=== PATIENT | male | born 1955 | race Caucasian/White ===

== ENCOUNTER 2019-09-20 04:51 | Inpatient (IN) ==
[2019-09-14 16:16] LABS: Appearance,Urine CLEAR; Bilirubin,Urine NEG (NEG); Color,Urine YELLOW; Culture Indicated,Urine NO; Glucose,Urine (UA) 50 mg/dL (NEG); Ketones,Urine NEG (NEG); Leukocyte Esterase,Urine NEG /uL (NEG); Nitrate,Urine NEG (NEG); Protein,Urine NEG (NEG); Specific Gravity,Urine 1.019 (1.000-1.035); Urine Blood NEG mg/dL (<0.03); Urobilinogen,Urine NEG (NEG)
[2019-09-14 16:46] LABS: Prothrombin Time 12.8 sec (11.9-14.5)
[2019-09-14 18:11] LABS: Basophils % (Auto) 1.3 % (0.0-2.0); Eosinophils # (Auto) 0.53 K/mcL (0.00-0.70); Eosinophils % (Auto) 6.7 % (0.0-7.0); Granulocytes % (Auto) 63.1 % (38.0-78.0); Hematocrit 44.3 % (40.1-51.0); Hemoglobin 14.6 g/dL (13.7-17.5); Lymphocytes # (Auto) 1.56 K/mcL (1.50-4.80); Lymphocytes % (Auto) 19.7 % (15.5-49.0); Mean Cell Volume 91.3 fL (80.0-100.0); Mean Platelet Volume 9.8 fL (7.4-10.4); Monocytes # (Auto) 0.73 K/mcL (0.10-0.90); Monocytes % (Auto) 9.2 % (1.0-12.0); Platelet Count 277 K/mcL (140-440); RBC 4.85 M/mcL (4.63-6.08); Red Cell Distribution Width 12.1 % (11.5-14.5); WBC 7.9 K/mcL (4.50-11.00)
[2019-09-14 18:25] LABS: Blood Urea Nitrogen 18 mg/dl (8-23); Calcium 9.3 mg/dl (8.6-10.4); Carbon Dioxide 26 mmol/L (22-30); Chloride 103 mmol/L (96-108); Glomerular Filtration Rate 89; Glucose 122 mg/dL (70-105)
[2019-09-14 18:31] LABS: Estimated Average Glucose(eAG) 163 mg/dL; Hemoglobin A1C 7.3 % HGB (4.0-6.0)
[2019-09-20] MEDS ORDERED: IPRATROPIUM/ALBUTEROL 3 ML AMPUL.NEB NEB PRN ×2 (05:00→09:41)
[2019-09-20] MEDS ORDERED: SCOPOLAMINE 1 PATCH PATCH TOPICAL PRN (05:00)
[2019-09-20] MEDS ORDERED: 0.9 % SODIUM CHLORIDE 9 ML, KETOROLAC 30 MG, ROPIVACAINE HCL/PF 49.5 ML, EPINEPHrine 0.... IJ SCH (06:00)
[2019-09-20] MEDS ORDERED: ceFAZolin 2 GM in DEXTROSE 5% IN WATER 50 ML IV SCH (06:00)
[2019-09-20] MEDS ORDERED: GENTAMICIN SULFATE 800 MG/20 ML VIAL IR ONE (07:20)
[2019-09-20] MEDS ORDERED: ROPIVACAINE HCL/PF 20 ML VIAL IJ ONE (07:40)
[2019-09-20] MEDS ORDERED: KETAMINE 100 MG/ML ML IV ONE (07:40)
[2019-09-20] MEDS ORDERED: ONDANSETRON 4 MG/2 ML VIAL IV ONE (07:40)
[2019-09-20] MEDS ORDERED: PROPOFOL 200 MG/20 ML VIAL IV ONE (07:40)
[2019-09-20] MEDS ORDERED: PHENYLEPHRINE 10 MG/ML VIAL IV ONE (07:40)
[2019-09-20] MEDS ORDERED: DEXAMETHASONE 10 MG/ML VIAL IV ONE (07:40)
[2019-09-20] MEDS ORDERED: TRANEXAMIC ACID 1,000 MG/10 ML VIAL IV ONE ×2 (07:40→09:16)
[2019-09-20] MEDS ORDERED: GLYCOPYRROLATE 0.2 MG/ML VIAL IV ONE (07:40)
[2019-09-20] MEDS ORDERED: LIDOCAINE HCL/PF 100 MG/5 ML SYRINGE IV ONE (07:40)
[2019-09-20] MEDS ORDERED: MAGNESIUM HYDROXIDE 30 ML ORAL.SUSP PO PRN (09:16)
[2019-09-20] MEDS ORDERED: METHOCARBAMOL 1,000 MG/10 ML VIAL IV PRN ×2 (09:16→09:41)
[2019-09-20] MEDS ORDERED: ONDANSETRON 4 MG/2 ML VIAL IV PRN ×2 (09:16→09:41)
[2019-09-20] MEDS ORDERED: BISACODYL 10 MG SUPP.RECT PR PRN (09:16)
[2019-09-20] MEDS ORDERED: BENZOCAINE/MENTHOL 1 LOZENGE PO PRN ×2 (09:16→09:41)
[2019-09-20] MEDS ORDERED: ACETAMINOPHEN 325 MG TABLET PO PRN ×2 (09:16→09:20)
[2019-09-20] MEDS ORDERED: NAPROXEN 250 MG TABLET PO PRN (09:20)
[2019-09-20] MEDS ORDERED: FLUTICASONE PROPIONATE SPRAY.NAS NS PRN (09:20)
[2019-09-20] MEDS ORDERED: FEXOFENADINE 180 MG TABLET PO PRN (09:20)
--- NOTE | 2019-09-20 09:22 | Brief Operative Note ---
Date of procedure: 09/20/19 Pre-op diagnosis: djd right knee Post-op diagnosis: same Procedure: right TKR Grafts/Implants: Yes (Triathlon 6 femur, 6 tibia, 36 patella, 10 mm poly tray) Anesthesia: JULITA Surgeon: Toni Motta Mica Miner Blasting: Fco Chun Estimated blood loss (cc): 100 Tourniquet Time (Minutes): 71 Specimens Removed/Pathology: none sent Condition: stable Disposition: PACU
[2019-09-20] MEDS ORDERED: METOPROLOL TARTRATE 5 MG/5 ML VIAL IV PRN (09:41)
[2019-09-20] MEDS ORDERED: LABETALOL 5 MG/ML ML IV PRN (09:41)
[2019-09-20] MEDS ORDERED: fentaNYL 100 MCG/2 ML VIAL IV PRN (09:41)
[2019-09-20] MEDS ORDERED: NALOXONE HCL 0.4 MG/ML VIAL IV PRN (09:41)
[2019-09-20] MEDS ORDERED: LACTATED RINGERS 250 ML IV PRN (09:41)
[2019-09-20] MEDS ORDERED: ACETAMINOPHEN 1,000 MG/100 ML BOTTLE IV ONE (09:41)
[2019-09-20] MEDS ORDERED: FLUMAZENIL 0.1 MG/ML ML IV PRN (09:41)
[2019-09-20] MEDS ORDERED: LACTATED RINGERS 1,000 ML IV SCH (09:45)
--- NOTE | 2019-09-20 10:34 | XRay Report ---
CLINICAL INFORMATION: Post-op total knee. COMPARISON: None. FINDINGS: Total knee prostheses is anatomically aligned. No osseous abnormality. Periarticular gas and soft tissue swelling seen as expected. IMPRESSION: Negative Interpreted and Authenticated by: Silvano Ramos 09/20/19
[2019-09-20] MEDS: 0.9 % SODIUM CHLORIDE 1,000 ML IV SCH (15:07)
[2019-09-20] MEDS: 0.9 % SODIUM CHLORIDE 10 ML SYRINGE IV SCH ×2 (15:07→20:33)
[2019-09-20] MEDS ORDERED: ceFAZolin 1 GM VIAL ONE (15:20)
[2019-09-20] MEDS: ceFAZolin 1 GM VIAL IV SCH ×2 (15:23→23:30)
[2019-09-20] MEDS: metFORMIN 500 MG TABLET PO SCH (16:41)
[2019-09-20] MEDS: FERROUS SULFATE 325 MG TABLET PO SCH (16:41)
--- NOTE | 2019-09-20 17:05 | Operative Note ---
DATE OF OPERATION: 09/20/2019 PREOPERATIVE DIAGNOSIS: Degenerative joint disease of the right knee. POSTOPERATIVE DIAGNOSIS: Degenerative joint disease of the right knee. OPERATION: Vince-assisted total knee replacement. SURGEON: Toni Motta M.D. SAFE EXPERT: Fco Chun PA-C. The PA's assistance was required for the safe and efficient completion of the entire case. This provider's expertise and technical skill were required throughout the case. The PA assisted with preoperative coordination, intraoperative retraction, wound closure, dressing and splint application, as well as postoperative documentation and care coordination. ANESTHESIA: General. TOURNIQUET TIME: 70 minutes. ESTIMATED BLOOD LOSS: 100 mL. SUMMARY OF PROCEDURE: General anesthesia was attained. The right leg was prepped and draped. A midline incision was made from the quadriceps to the tibial tubercle after the tourniquet had been put up. This was taken down sharply to the quadriceps and medial retinaculum. The VMO was split for about 2 cm and the distal 2 cm of the quadriceps was split followed by medial retinaculum. A medial release was done. The fat pad was debrided. The ACL was released. The anterior aspect of the menisci were resected. Two stab incisions were made in the femur above the incision, followed by drilling of two 4.0 pins, followed by the Vince array. The same was done in the tibia using 3.2 mm through two anteromedial stab incisions. The kneecap was mobilized laterally. The hip center was identified with revolution of the hip. The medial and lateral menisci were identified. ____ tyrel was then confirmed during the registration of the femur and reconfirmed. This was also done on the tibia. Balancing was then done using osteotomes and stress measurement. We balanced the flexion and extension gap and made sure the patient could get full flexion and extension as well. The Vince robotic arm was then used to make the cuts. The tibial cut was made, followed by all of the femoral cuts. The tibial trial was next placed and externally rotated. The drill and the broach were then used to prepare the tibia. The femur trial was next placed. The drill holes were made through the distal pegs of the femur. Trials were then done of the polyethylene, and the best combination of stability with a full range of motion was with a 10 mm insert. The bone surfaces were copiously irrigated. The patella was everted. A measured resection was done of the patella, resecting 10 mm and leaving 13 mm of bone. The peg holes for the patella were then drilled. He was injected throughout with multimodal solution for postoperative analgesia. After thorough irrigation of the bone surfaces, the cemented components were next implanted. The leg was left in full extension as the cement set up. Excess cement was removed. A patellar clamp was used to hold the patella in compression when it was cemented in as well. The tourniquet was let down. All bleeding points were coagulated. Estimated blood loss was 100 mL. The quadriceps and medial retinaculum were closed with running sutures of Stratafix. The subcutaneous tissue was closed with interrupted buried 2-0 Monocryl. The skin was closed with avni. A sterile compressive dressing was applied. The patient tolerated the procedure well and was taken to the recovery room in stable condition. [email or web address]:heriberto Job ID: [id number] Doc ID: [id number] Toni Motta MD
[2019-09-20] MEDS: HYDROcodone/APAP 10/325MG TABLET PO PRN (20:11)
[2019-09-20] MEDS: ASPIRIN 81 MG TAB.CHEW PO SCH (20:33)
[2019-09-20] MEDS: DOCUSATE SODIUM 100 MG CAPSULE PO SCH (20:33)
[2019-09-20] MEDS ORDERED: TRAVOPROST OPHTH DROPS BOTTLE 2.5ML OU SCH (21:00)
[2019-09-20] MEDS ORDERED: SENNOSIDES 1 TABLET PO SCH (21:00)
[2019-09-20] MEDS ORDERED: SIMVASTATIN 10 MG TABLET PO SCH (21:00)
[2019-09-21] MEDS: HYDROcodone/APAP 10/325MG TABLET PO PRN ×3 (01:30→10:41)
[2019-09-21] MEDS: 0.9 % SODIUM CHLORIDE 1,000 ML IV SCH (02:05)
[2019-09-21] MEDS: 0.9 % SODIUM CHLORIDE 10 ML SYRINGE IV SCH (07:04)
[2019-09-21 07:07] LABS: Hematocrit 35.3 % (40.1-51.0); Hemoglobin 11.9 g/dL (13.7-17.5)
--- NOTE | 2019-09-21 07:39 | Discharge Summary ---
Providers - Providers Patient information: Note initiated : 09/21/19 at 7:36 am Service Date, if different from initiated Date: [] Patient: Antonio Ramirez 63 y/o M admitted on 09/20/19 for Left Total Knee Arthroplasty Vince . Chief Complaint: [] Discharge date: 09/21/19 Hospitalization Hospital Course: Patient admitted after surgery for post op pain control and PT. Patient is doing well and had an uncomplicated stay. Discharge diagnosis: s/p Right total knee arthroplasty Exam - Exam Incision healing: Yes Weight bearing status: full Range of motion: 0-90 Ortho Discharge - TKA - Patient Instructions Diet: Regular Diet Activity: activity as tolerated Total Knee Protocol: For Total Knee: Start ROM RENE with stationary bike or rocking chair. Work on gaining full extension of knee. Posterior dislocation precautions provided. Hip abductor strengthening and gait training instructions provided. Apply Cryocuff as instructed. Dressing Care: Other Additional Dressing Instructions: Leave dressing in place until 09/27/19. Then remove and may leave open to air or apply thin film of antibiotic ointment and gauze once daily. - Follow Up Plan Follow Up Appointments: Fco Chun PA-C [Physician [employer]mel[employer]] - 10/03/19 Disposition: Home, Self-Care Prognosis: Good Rehab Potential: Good I certify that the patient requires SNF services: No Overall status at discharge: patient is progressing back to baseline - Orders For Discharge Prescriptions: Aspirin 81 mg PO BID 30 Days #60 tab.chew Transmission Status: Received by [facility] [employer] [address] [place] [address], HYDROcodone/APAP 10/325MG [[place] 10-325Mg] 1 - 2 tab PO Q4-6HP PRN #60 tab PRN Reason: Pain Prescription Printed Pending Studies Resuscitation Status Full Code Diet Consistent Carbohydrate Diet Start TueSep 20 Lunch Hydrocodone Bitart/Acetaminophen ([place] 10/325mg) 0 tab PO Q4HP PRN; Protocol PRN Reason: PAIN LEVEL 3-6 Last Admin: 09/21/19 07:00 Dose: 2 tab Documented by: ASMSara Admin: 09/21/19 01:30 Dose: 2 tab Documented by: Admin: 09/20/19 20:11 Dose: 2 tab Documented by: MARCIA Aspirin (Aspirin) 81 mg PO BID [facility] Last Admin: 09/20/19 20:33 Dose: 81 mg Documented by: MARCIA Docusate Sodium (Colace) 100 mg PO BID [facility] Last Admin: 09/20/19 20:33 Dose: 100 mg Documented by: MARCIA Ferrous Sulfate (Ferrous Sulfate) 325 mg PO BIDCC [facility] Last Admin: 09/20/19 16:41 Dose: 325 mg Documented by: ALDEN Sodium Chloride (Sodium Chloride 0.9%) 1,000 mls @ 75 mls/hr IV .[id number] [facility] Last Admin: 09/21/19 02:05 Dose: Not Given Documented by: Admin: 09/20/19 15:07 Dose: 75 mls/hr Documented by: ALDEN Metformin HCl (Glucophage) 1,000 mg PO BIDCC [facility] Last Admin: 09/20/19 16:41 Dose: 1,000 mg Documented by: ALDEN Senna (Senokot) 2 tab PO [facility] Last Admin: 09/20/19 20:33 Dose: 2 tab Documented by: MARCIA Simvastatin (Zocor) 10 mg PO [facility] Last Admin: 09/20/19 20:33 Dose: 10 mg Documented by: MARCIA Sodium Chloride (Saline Flush) 10 ml IV Q8 [facility] Last Admin: 09/21/19 07:04 Dose: 10 ml Documented by: Admin: 09/20/19 20:33 Dose: Not Given Documented by: Admin: 09/20/19 15:07 Dose: Not Given Documented by: ALDEN Travoprost (Travatan Z Ophth Drops) 1 gtt OU [facility] Last Admin: 09/20/19 20:34 Dose: 1 gtt Documented by: MARCIA Shift Summary 09/20/19 15:49 Shift Summary by Paul Sy Patient is working with PT at present. Denies pain. Was straight cath'd in recovery and since coming to the floor for 900 and 600. Is alert and oriented; calls appropriately. IV is infusing. Has ordered supper. No concerns at present. Initialized on 09/20/19 15:49 - END OF NOTE
[2019-09-21] MEDS: DOCUSATE SODIUM 100 MG CAPSULE PO SCH (08:43)
[2019-09-21] MEDS: FERROUS SULFATE 325 MG TABLET PO SCH (08:43)
[2019-09-21] MEDS: metFORMIN 500 MG TABLET PO SCH (08:43)
[2019-09-21] MEDS: ASPIRIN 81 MG TAB.CHEW PO SCH (08:43)
[2019-09-21] MEDS ORDERED: MAGNESIUM OXIDE 400 MG TABLET PO SCH (09:00)
[2019-09-21] MEDS ORDERED: FISH OIL 1,000 MG CAPSULE PO SCH (09:00)
[2019-09-21] MEDS ORDERED: GELATIN PO SCH (09:00)
[2019-09-21] MEDS ORDERED: MULTIVIT,THER IRON,CA,FA & MIN 1 TABLET PO SCH (09:00)
== END 2019-09-21 10:50 | disposition home or self-care (01) | DRG 470 ==
LOC: MEDSUR 04:51
PROVIDERS: ADMIT Orthopaedic Surgery Foot and Ankle Surgery; ATTEND Orthopaedic Surgery Foot and Ankle Surgery